=== PATIENT | male | born 1940 | race Caucasian/White ===

== ENCOUNTER → 2018-11-24 14:39 | Outpatient (CLI) | payer MEDICARE, OTHER, SELFPAY ==
--- NOTE | 2018-11-24 16:20 | DI.ECHO.S_ITS ---
[place] [facility]---------+ [facility] +---------+ : : [address] : : : : [id number] : : : : Phone: [phone]+ Echocardiogram Report + + :Name: SUZANNE PATRICIO Study Date: 11/24/2018 Height: 74 in : :[facility] Exam Location: [facility] Weight: 300 lb : : Gender: Male BSA: 2.6 m2 : :: 1940 Age: 78 yrs BP: 105/70 mmHg: :Reason For Study: Cardiomyopathy : :Ordering Physician: Abraham : :Rik Performed By: Jenni Page : + + Interpretation Summary Left ventricular systolic function is low normal with the ejection fraction grossly estimated to be 55-60%. There is a significant dyssynchronous contraction pattern due to the paced rhythm and severe hypokinesis in the proximal to mid inferior wall extending into the proximal inferior septum that is unchanged from the previous study but global contractility appears to be more dynamic with resultant improved ejection fraction. The left ventricle is normal in size and appears smaller compared to the previous study. The right ventricle is not well visualized but grossly appears normal in size with probable normal systolic function and is likely unchanged compared to the previous study. The right ventricular systolic pressure is estimated to be at least 24 mmHg based on an estimated right atrial pressure of 8 mm Hg; both values are likely significantly lower compared to the previous study. The left atrium is severely dilated but unchanged compared to the previous study. The right atrium is moderately dilated and has mildly decreased in size. There is mild mitral regurgitation that is less prominent compared to the previous study. There is no other significant valvular heart disease. The aortic root is mildly dilated but is unchanged compared to the previous study. Procedure: A two-dimensional transthoracic echocardiogram with color flow and Doppler was performed. The study quality was technically difficult. Comparison is made with the echocardiogram of 08/28/2017. A contrast injection of Definity was performed to improve assessment of LV function. The patient has a paced rhythm. Left Ventricle: The left ventricle is normal in size. This is appears smaller compared to the previous study. There is borderline concentric left ventricular hypertrophy. Left ventricular systolic function is low normal. The ejection fraction is estimated to be 55-60%. There is a significant dyssynchronous contraction pattern due to the paced rhythm. There is severe hypokinesis in the proximal to mid inferior wall, extending into the proximal inferior septum, that is unchanged from the previous study but global contractility appears to be more dynamic with resultant improved ejection fraction. Diastolic function could not be accurately assessed due to paced rhythm. Right Ventricle: The right ventricle is not well visualized. The right ventricle grossly appears normal in size with probable normal systolic function. This is unchanged compared to the previous study. There is a pacemaker lead in the right ventricle. Atria: The left atrium is severely dilated. This is unchanged compared to the previous study. The right atrium is moderately dilated. The right atrium has mildly decreased in size since the prior echo exam. There is no Doppler evidence for an interatrial shunt. The interatrial septum is intact with no evidence for an atrial septal defect. Mitral Valve: There is mild mitral annular calcification. The mitral valve leaflets appear mildly thickened, but open well. There is mild mitral regurgitation. This is less prominent compared to the previous study. Aortic Valve: The aortic valve is not well visualized. The aortic valve is mildly calcified. The aortic valve opens well. No aortic regurgitation is present. Tricuspid Valve: The tricuspid valve is not well visualized, but is grossly normal. There is trace tricuspid regurgitation. This is unchanged compared to the previous study. The right ventricular systolic pressure is estimated to be at least 24 mmHg based on an estimated right atrial pressure of 8 mm Hg. This is both values are significantly lower compared to the previous study. Pulmonic Valve: The pulmonic valve is not well visualized. There is trace pulmonic regurgitation. There is no other significant valvular heart disease. Great Vessels: The aortic root is mildly dilated. This is unchanged compared to the previous study. The ascending aorta could not be visualized. The pulmonary is not well visualized. The IVC is dilated (diameter is greater than 2.1 cm) yet it collapses greater than 50% with a sniff. This suggests a right atrial pressure of 8 mm Hg. Pericardium/ Pleura There is no pericardial effusion. There is no pleural effusion. MMode/2D Measurements & Calculations LVIDd: 5.2 cm LVOT diam: 2.4 cm LVIDs: 3.9 cm Ao root diam: 3.9 cm FS: 24.0 % EPSS: 0.74 cm IVSd: 0.89 cm LVPWd: 1.2 cm LV chaidez. diameter/BSA (cm/m^2): 2.0 LV sys. diameter/BSA (cm/m^2): 1.5 LA A2 area: 33.4 cm2 RA long axis: 6.6 cm LA A4 area: 31.5 cm2 RA area: 28.9 cm2 LA length (vol): 7.2 cm RA vol: 107.2 ml LA vol: 124.0 ml RA : 41.5 ml/m2 LA vol index: 48.0 ml/m2 IVC diam: 2.5 cm RVD1 (basal): 5.0 cm TAPSE: 1.9 cm Doppler Measurements & Calculations Ao V2 max: 131.3 cm/sec LVOT Max Campos: 79.7 cm/sec Ao V2 mean: 89.9 cm/sec LV V1 max P.5 mmHg Ao max P.9 mmHg LV V1 VTI: 18.1 cm Ao mean P.6 mmHg MIGUEL(I,D): 3.1 cm2 Ao V2 VTI: 26.9 cm MIGUEL(V,D): 2.8 cm2 sev ratio: 0.67 MIGUEL indexed to BSA (cm^2/m^2): 1.2 MV E max campos: 64.2 cm/sec TR max campos: 201.7 cm/sec MV A max campos: 80.4 cm/sec TR max P.3 mmHg MV E/A: 0.80 PA V2 max: 56.1 cm/sec Med Peak E' Campos: 2.9 cm/sec PA V2 mean: 32.3 cm/sec E/E' med: 22.2 PA mean P.49 mmHg Lat Peak E' Campos: 8.7 cm/sec E/E' lat: 7.4 E/e' average: 14.8 MV dec time: 0.29 sec MV P1/2t: 87.5 msec MV P1/2t max campos: 64.9 cm/sec SV(LVOT): 82.3 ml MVA(P1/2t): 2.5 cm2 Reading Physician:PM
== END ==
PROVIDERS: Family Provider Family Medicine; Visit Provider Specialist
DX: I34.0 Nonrheumatic mitral (valve) insufficiency (principal); I42.9 Cardiomyopathy, unspecified; Z95.0 Presence of cardiac pacemaker
CPT/HCPCS: 93306; Q9957

== ENCOUNTER 2018-12-17 13:58 | Day surgery (SDC) | payer MEDICARE, OTHER, SELFPAY ==
[2018-12-16 08:37] VITALS: BMI 39.6
--- NOTE | 2018-12-17 | DI.RAD.S_ITS ---
PROCEDURE: XR CHEST 1V INDICATIONS: s/p port pacement in PACU TECHNIQUE: One view of the chest was acquired. COMPARISON: None. FINDINGS: Surgical changes and devices: Left chest wall cardiac device leads are seen in the region of right atrium and right ventricle. Median sternotomy wires are seen. A right chest wall Port-A-Cath tip is in SVC. Lungs and pleura: Mild pulmonary vascular congestion is seen. No definite focal infiltrate. No pleural effusions or pneumothorax. Mediastinum: Mediastinal contours appear normal. Heart size is normal. Bones and chest wall: No suspicious bony lesions. Overlying soft tissues appear unremarkable. IMPRESSION: Right chest wall Port-A-Cath tip is in SVC. Mild pulmonary vascular congestion. No focal infiltrate, pleural effusion or pneumothorax. Dictated by: Mohsen Monk M.D. on 12/17/2018 at 17:20 Approved by: Mohsen Monk M.D. on 12/17/2018 at 17:24
[2018-12-17 14:39] VITALS: BP 126/71; PULSE 73; RESP 15; TEMP 36.3; O2SAT 95; BMI 37.7
[2018-12-17] MEDS: LACTATED RINGERS 1,000 ML 100 ML IV (14:53)
[2018-12-17] MEDS: CEFAZOLIN 2 GM/100 ML FROZ.PIGGY IV (15:12)
--- NOTE | 2018-12-17 15:58 | SUR.OPER ---
Supine on padded OR bed, head on pillow, arm padded and tucked at side, legs uncrossed, safety belt at thigh, tape over blanket over lower legs .
[2018-12-17] MEDS: BUPIVACAINE 0.5% W/ EPI (PF) VIAL 30 ML INJ (16:06)
[2018-12-17] MEDS: HEPARIN 5,000 UNIT, SODIUM CHLORIDE 0.9% 50 ML IV (16:09)
[2018-12-17 16:57] VITALS: BP 114/64; PULSE 60; RESP 12; TEMP 36.2; O2SAT 94
--- NOTE | 2018-12-17 16:57 | P.OP_ITS ---
Operative Date/Time/Diagnoses Date of procedure: 12/17/18 Time of procedure: 16:54 Pre-op diagnosis: lymphoma Post-op diagnosis: same Procedure & Clinicians Procedure: Implanted power - port - right IJ Same procedure as scheduled: Yes Indications: 78-year-old man with a new diagnosis of lymphoma needing implanted port ahead of planned chemotherapy Surgeon: Jose Cueto Click Yes if Unassisted: Yes Anesthesia Type: MAC +/- and Local Operative Notes Findings: Port placed -an IJ, seen by fluoro Closure Type: primary Specimen(s): none sent Prosthetic devices, grafts, tissues, transplants, or devices: Power port implanted port Estimated Blood Loss (mL): 10 Blood products transfused: none Procedure in detail: Patient taken to the operating room and LMA was placed. Is prepped and draped in the usual sterile fashion and time-out was completed. The patient positioned on a shoulder roll. Given patient's pacemaker over the left chest. The right chest was chosen for the site of his port. 1st attempted to place a subclavian line. Three passes were made 2 cm inferior and lateral of the peak of the curvature of the right clavicle -directed towards the sternal notch. There is no flash. Then switched to a right IJ placement. In Trendelenburg position -ultrasound was utilized which readily identified the internal jugular vein, was non-pulsatile, easily compressible, and lateral to the carotid artery. A single puncture was made under ultrasound guidance directly into the vein. The wire was threaded without incident. Fluoroscopy was utilized to confirm placement into the right atrium of the guidewire. The tract was then dilated and a sheath was placed. I then created a small pocket over the right pectoralis major muscle in the subcutaneous tissue. Due to the patient's pacemaker this was done with a scalpel. Bipolar cautery was used for hemostasis. With the pocket created the catheter was tunneled via the small neck incision into the pocket -taking a broad curved route. The distal tip of the catheter was then threaded down the sheath without incident and the sheath was split in half by removing it. Under fluoroscopic guidance the catheter was then backed out until the tip was at approximately the SVC/atrial junction. The catheter was foreshortened and the reservoir was attached without incident. The reservoir was placed into the pocket and sutured to the deep tissue utilizing 2 2-0 Prolene sutures. A Chapa needle was placed into the reservoir- it easily withdrew blood. The reservoir was then flushed out and heparin lock with 5ml of 100 units/ml heparin solution. Skin was closed with a layer of deep dermal 2 0 Vicryl sutures and then running subcuticular 3 0 Monocryl. X-ray in PACU demonstrated will place port -with tip just flow proximal to the SVC/atrial junction. Complications: none Condition: stable Disposition: PACU
[2018-12-17 17:00] VITALS: BP 118/63; PULSE 60; RESP 15; O2SAT 95
[2018-12-17 17:20] VITALS: BP 126/68; PULSE 59; RESP 16; TEMP 36.1; O2SAT 95
[2018-12-17] MEDS: OXYCODONE/ACETAMINOPHEN 5/325 TABLET 1 TAB PO (17:36)
--- NOTE | 2018-12-17 18:05 | SUR.PHASEII ---
Pt ambulated to bathroom, gait steady. Able to void. Sat down heavy on wheelchair, head bumped the IV pole, pt reported mild discomfort initially but resolved quickly.
== END 2018-12-17 17:58 | disposition home or self-care (01) ==
PROVIDERS: PCP Family Medicine; Visit Provider Surgery
PROC: (CPT 36561; principal; 2018-12-17 15:15)
DX: Z45.2 Encounter for adjustment and management of vascular access device (principal); C85.90 Non-Hodgkin lymphoma, unspecified, unspecified site; Z95.0 Presence of cardiac pacemaker; Z95.1 Presence of aortocoronary bypass graft
CPT/HCPCS: 36561; 71045; 76000; C1788; J0690; J1644; J2704; J3010

== ENCOUNTER → 2019-04-21 11:58 | Outpatient (CLI) | payer MEDICARE, OTHER, SELFPAY ==
[2019-04-21 12:33] LABS: Add Manual Diff / Slide Review NO; Basophils Absolute Auto 0 /uL (0-100); Basophils Percent Auto 0.7 % (0-2); Eosinophils Absolute Auto 100 /uL (0-450); Hematocrit 43.1 % (41-53); Hemoglobin 14.6 g/dL (13.5-17.5); Lymphocytes Absolute Auto 1600 /uL (1100-4500); Lymphocytes Percent Auto 23.7 % (25-40); Mean Corpuscular Hemoglobin 30.1 PG (26-34); Mean Corpuscular Volume 88.6 fL (80-100); Monocytes Absolute Auto 1000 /uL (0-900); Monocytes Percent Auto 14.4 % (3-14); Neutrophils Absolute Auto 4000 /uL (1500-7000); Neutrophils Percent Auto 59.2 % (50-75); Platelet Count 103 X10^3/uL (150-400); Red Blood Cell Count 4.87 X10^6/uL (4.5-5.9); Red Cell Distribution Width 14.2 % (11.6-14.8); White Blood Cell Count 6.8 X10^3/uL (4.5-11.0)
[2019-04-21 12:45] LABS: Alanine Aminotransferase 30 IU/L (21-72); Albumin 4.4 g/dL (3.5-5.0); Albumin Globulin Ratio 1.5 (1.0-2.8); Alkaline Phosphatase 71 U/L (38-126); Aspartate Aminotransferase 41 IU/L (17-59); Bilirubin Total 1.1 mg/dL (0.2-1.3); Blood Urea Nitrogen 18 mg/dL (9-20); Calcium 9.8 mg/dL (8.4-10.2); Carbon Dioxide 31 mmol/L (22-32); Chloride 105 mmol/L (98-107); Estimated Glomerular Filt Rate > 60.0 mL/min (>60); Globulin 2.9 g/dL (1.7-4.1); Glucose 104 mg/dL (80-110); HEMOLYSIS 22 (0-50); Lactate Dehydrogenase 620 U/L (313-618); Sodium 142 mmol/L (137-145); Total Protein 7.3 g/dL (6.3-8.2)
[2019-04-21 12:53] LABS: Potassium 5.8 mmol/L (3.4-5.1)
== END ==
PROVIDERS: PCP Family Medicine
DX: C83.10 Mantle cell lymphoma, unspecified site (principal)
CPT/HCPCS: 36415; 80053; 83615; 85025

== ENCOUNTER → 2019-04-22 13:47 | Outpatient (CLI) | payer MEDICARE, OTHER, SELFPAY ==
--- NOTE | 2019-04-22 | DI.CT.S_ITS ---
PROCEDURE: CT SOFT TISSUE NECK W CON INDICATIONS: Mantle cell lymphoma, unspecified site TECHNIQUE: After the administration of intravenous contrast, 3.0 mm axial sections acquired from the sella to the aortic arch. Additional oblique axial 3.0 mm sections acquired through the pharynx. 3 mm thick coronal and sagittal reformats were generated. For radiation dose reduction, the following was used: automated exposure control. COMPARISON: [facility], MD, MD PET CT FUSION SKULL 2 THIGH, 12/16/2018, 18:35. [facility], CT, CT SOFT TISSUE NECK WITH CONTRAST, 10/18/2018, 14:47. FINDINGS: Image quality: Excellent. Since the 10/18/18 interval enlargement of multiple bilateral cervical lymph nodes. For example on image 50 series 2 left-sided cervical lymphadenopathy measuring 2.3 x 1.9 cm, previously 2.0 x 1.8 cm. On the same image, right cervical lymph node measures 2.6 x 1.4 cm, previously 2.1 x 1.2 cm. On image 28 series 2 overlying the right masseter, lymph node measures 2.3 x 10.7 cm, previously 1.8 x 0.7 cm. These also appear increased in size from nondiagnostic CT attenuation correction images on the PET/CT dated 12/16/18 Vessels: Visualized vasculature appears patent. Neck spaces: The oropharynx, nasopharynx, and pharynx demonstrate no mucosal lesions. The vocal cords, false vocal cords, pyriform sinuses, epiglottis, vallecula, and tongue base all appear normal. Extramucosal spaces appear unremarkable. Glands: The parotid and submandibular glands appear normal. Thyroid gland contains hypodense nodules seen in the isthmus as before. Miscellaneous: Visualized brain and orbits appear normal. Lung apices appear clear. Superficial soft tissues appear normal. Cervical spondylosis and facet arthropathy. Straightening of the normal lordotic curvature. IMPRESSION: Progressive diffuse cervical lymphadenopathy as above. Dictated by: Zhang Peña M.D. on 04/22/2019 at 17:59 Approved by: Zhang Peña M.D. on 04/22/2019 at 18:06
--- NOTE | 2019-04-22 | DI.CT.S_ITS ---
PROCEDURE: CT CHEST ABD PEL W CON INDICATIONS: Mantle cell lymphoma, unspecified site TECHNIQUE: After the administration of intravenous contrast, 5 mm thick sections acquired from the lung apices to the symphysis. 5 mm coronal and sagittal reformats were performed, with additional 7 mm MIP reformats through the lungs. For radiation dose reduction, the following was used: automated exposure control, adjustment of mA and/or kV according to patient size. COMPARISON: [facility], CT, PELVIS W CONTRAST, 06/26/2011, 17:47. [facility], [place], [place] PET CT FUSION SKULL 2 THIGH, 12/16/2018, 18:35. FINDINGS: Image quality: Excellent. CHEST: Lungs and pleura: Unchanged subpleural nodule measuring 3 mm in the right lung on image 194 there is also fissural nodularity on image 182 series 3 which is stable. Scattered subsegmental atelectasis and/or scarring. No focal consolidation. No pleural effusions or pneumothorax. Central and peripheral airways appear patent and normal in caliber. Mediastinum: Heart size is enlarged. No pericardial effusion. No mediastinal or hilar adenopathy by size criteria. Thoracic aorta and central pulmonary arteries are normal in size. Esophagus is normal in caliber. No hiatal hernia. Chest wall: No axillary or supraclavicular adenopathy by size criteria. Thyroid gland unremarkable. ABDOMEN: Solid organs: Liver is normal in size and enhancement. Gallbladder contracted and unremarkable. Biliary system is non dilated. Pancreas enhances normally. Spleen is normal in size and enhancement. No adrenal nodules. Kidneys demonstrate normal size and enhancement, without hydronephrosis. Bilateral renal cysts with simple appearance Peritoneum and bowel: Bowel loops demonstrate normal wall thickness and caliber. No free fluid or air. Nodes and vessels: Unchanged shotty retroperitoneal or mesenteric lymph nodes with no definite pathologic enlargement. Left aortoiliac stent as before and grossly unchanged appearance. Miscellaneous: No ventral hernias. PELVIS: Genitourinary: Bladder wall thickness is normal. Bilateral inguinal scarring and/or mildly enlarged lymph nodes which appear unchanged. Small fat-containing left inguinal hernia Multilevel spondylosis and facet arthropathy. Diffuse osteopenia. Diffuse lytic permeative appearance of the L4 and L5 vertebral bodies is grossly unchanged IMPRESSION: Overall, unchanged examination. No specific evidence of active metastatic disease. Additional chronic and incidental findings as above. Dictated by: Zhang Peña M.D. on 04/22/2019 at 16:10 Approved by: Zhang Peña M.D. on 04/22/2019 at 16:26
== END ==
PROVIDERS: PCP Family Medicine
DX: C83.10 Mantle cell lymphoma, unspecified site (principal); M47.816 Spondylosis without myelopathy or radiculopathy, lumbar region; M85.80 Other specified disorders of bone density and structure, unspecified site; R91.1 Solitary pulmonary nodule; I51.7 Cardiomegaly; N28.1 Cyst of kidney, acquired
CPT/HCPCS: 70491; 71260; 74177; Q9967

== ENCOUNTER → 2019-09-01 11:51 | Outpatient (CLI) | payer MEDICARE, OTHER, SELFPAY ==
--- NOTE | 2019-09-01 11:54 | DI.CT.S_ITS ---
PROCEDURE: CT CHEST ABD PEL W CON INDICATIONS: f/u lymphoma TECHNIQUE: After the administration of oral and intravenous contrast, 5 mm thick sections acquired from the lung apices to the symphysis. 5 mm coronal and sagittal reformats were performed, with additional 7 mm coronal MIP reformats through the lungs. For radiation dose reduction, the following was used: automated exposure control, adjustment of mA and/or kV according to patient size. COMPARISON: [facility], CR, XR CHEST 1V, 12/17/2018, 17:03. [facility] Ultrasound, US, US THYROID, 01/09/2018, 11:10. [facility], US, US SOFT TISSUE HEAD OR NECK, 10/08/2018, 14:47. [facility], CT, CT SOFT TISSUE NECK WITH CONTRAST, 10/18/2018, 14:47. [facility], CT, CT SOFT TISSUE NECK W CON, 04/22/2019, 14:45. [facility], CT, CT SOFT TISSUE NECK W CON, 09/01/2019, 12:36. [facility], CT, CT CHEST ABD PEL W CON, 04/22/2019, 14:45. FINDINGS: Image quality: Excellent. CHEST: Lungs and pleura: No acute airspace opacities. Subpleural right mid lung 3 mm nodule stable over time, no new pulmonary nodule has developed. No pleural effusions or pneumothorax. Central and peripheral airways appear patent and normal in caliber. Mediastinum: Heart size is normal. No pericardial effusion. No mediastinal or hilar adenopathy by size criteria. Thoracic aorta and central pulmonary arteries are normal in size. Esophagus is normal in caliber. No hiatal hernia. Chest wall: No axillary or supraclavicular adenopathy by size criteria. Thyroid gland appears stable where well seen, and there is a 2.1 cm thyroid nodule that appears to have been previously present on prior CT scanning, just to the right of midline.. ABDOMEN: Solid organs: Liver is normal in size and enhancement. Gallbladder appears normal. Biliary system is non dilated. Pancreas enhances normally. Spleen is normal in size and enhancement. No adrenal nodules. Kidneys demonstrate normal size and enhancement, without hydronephrosis. Exophytic simple cyst projecting from the superior cortex of the left kidney, 5 cm. Peritoneum and bowel: Bowel loops demonstrate normal wall thickness and caliber. No free fluid or air. Nodes and vessels: No retroperitoneal or mesenteric adenopathy by size criteria. Aorta and inferior vena cava are normal in size. Miscellaneous: No ventral hernias. PELVIS: Genitourinary: Bladder wall thickness is normal. Miscellaneous: No inguinal hernias or adenopathy. Bones: No suspicious bony lesions. No vertebral body compression fractures. IMPRESSION: Right-sided thyroid nodule again seen, centered only slightly to the right of midline and this area has been previously identified and evaluated by ultrasound and ultrasound guided biopsy. No growing thyroid mass is identified. Throughout the visualized chest abdomen and pelvis no adenopathy or evidence of visceral involvement by lymphoma is found. Dictated by: Phil Cuadra M.D. on 09/01/2019 at 15:04 Approved by: Phil Cuadra M.D. on 09/01/2019 at 15:13
--- NOTE | 2019-09-01 11:54 | DI.CT.S_ITS ---
PROCEDURE: CT SOFT TISSUE NECK W CON INDICATIONS: f/u lymphoma TECHNIQUE: After the administration of intravenous contrast, 3.0 mm axial sections acquired from the sella to the aortic arch. Additional oblique axial 3.0 mm sections acquired through the pharynx. 3 mm thick coronal and sagittal reformats were generated. For radiation dose reduction, the following was used: automated exposure control. COMPARISON: [facility], CT, CT SOFT TISSUE NECK W CON, 04/22/2019, 14:45. FINDINGS: Image quality: Excellent. Lymph nodes: Bilateral level I, level II, level III, level IV and level V enlarged lymph nodes are stable in size compared to 04/22/2019. Bilateral intraparotid enlarged lymph nodes and enlarged lymph nodes in the bilateral temporal scalp subcutaneous fat are stable compared to 04/22/2019. Vessels: Visualized vasculature appears patent. Neck spaces: The oropharynx, nasopharynx, and pharynx demonstrate no mucosal lesions. The vocal cords, false vocal cords, pyriform sinuses, epiglottis, vallecula, and tongue base all appear normal. Extramucosal spaces appear unremarkable. Glands: The parotid and submandibular glands appear normal. Thyroid gland contains heterogeneously enhancing, hypoattenuating nodules which are stable in size, contour and number compared to prior exams.. Miscellaneous: Visualized brain appears normal. Partially visualized 2.4 x 1.3 cm soft tissue density mass in the post septal, extraconal lateral margin of the left orbit is noted. Lung apices appear clear. Superficial soft tissues appear normal. A cardiac pacer noted in the left chest wall. Port-A-Cath noted in the right chest wall. Bones: No suspicious bony lesions. Mucosal thickening in the left sphenoid sinus is stable. Visualized mastoids appear unremarkable. IMPRESSION: 1. Bilateral neck, bilateral intraparotid and bilateral temporal scalp lymphadenopathy stable compared to 04/22/2019. 2. 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 3. Left sphenoid sinus mucosal thickening unchanged compared to prior examinations and likely related to chronic sinusitis. Dictated by: Renetta Landers MD, PhD on 09/01/2019 at 15:40 Approved by: Renetta Landers MD, PhD on 09/01/2019 at 15:54
== END ==
PROVIDERS: PCP Family Medicine
DX: C83.10 Mantle cell lymphoma, unspecified site (principal); E04.1 Nontoxic single thyroid nodule; R59.0 Localized enlarged lymph nodes; H05.9 Unspecified disorder of orbit
CPT/HCPCS: 70491; 71260; 74177

== ENCOUNTER → 2019-12-03 12:53 | Outpatient (CLI) | payer MEDICARE, OTHER, SELFPAY ==
--- NOTE | 2019-12-03 12:55 | DI.CT.S_ITS ---
PROCEDURE: CT ORBIT BI W CON INDICATIONS: mantle cell lymphoma, left orbit mass TECHNIQUE: After the administration of intravenous contrast, 2.5 mm axial images acquired through the orbits, with coronal and sagittal reformats. For radiation dose reduction, the following was used: automated exposure control, adjustment of mA and/or kV according to patient size. COMPARISON: [facility], CT, CT SOFT TISSUE NECK W CON, 09/01/2019, 12:36. [facility], CT, CT SOFT TISSUE NECK W CON, 04/22/2019, 14:45. FINDINGS: Image quality: Excellent. Orbits: Within the right orbit, there is again seen abnormally enhancing soft tissue material along the inferolateral aspect of the globe, within the post septal extraconal orbit. On the left, there is a similar-appearing homogeneously enhancing mass along the superolateral aspect of the extraconal, post septal orbit, which measures 3.4 cm AP and nearly 3 cm craniocaudal. Globes are symmetrical. The optic nerves are normal in size and enhancement. The extra-ocular muscles are normal and symmetrical in appearance. Optic chiasm is normal. Intracranial: The pituitary gland is normal, without sellar or suprasellar masses. Visualized cerebral hemispheres, brainstem, and spinal cord appear normal. Bones and sinuses: Visualized calvarium and facial bones appear intact. Focal mucosal thickening can be seen involving left sphenoid sinus. Visualized sinuses and mastoids are otherwise clear. Soft tissue masses are seen involving the subcutaneous fat of both cheeks, with the largest on the left measuring 2.3 x 1.1 cm in greatest axial dimension. Apparent bilateral intra-parotid lymph nodes are also seen. IMPRESSION: Bilateral enhancing orbital masses are seen, left larger than right. Given history of lymphoma, these foci represent lymphoma until proven otherwise. Soft tissue masses can be seen involving the subcutaneous fat of both cheeks, which are also attributed to lymphoma. Apparent bilateral intraparotid lymph nodes are also seen. Focal left sphenoid sinus disease again noted. Dictated by: Lalo Mendoza M.D. on 12/03/2019 at 13:20 Approved by: Lalo Mendoza M.D. on 12/03/2019 at 13:28
[2019-12-03 13:16] LABS: Add Manual Diff / Slide Review NO; Basophils Absolute Auto 0 /uL (0-100); Basophils Percent Auto 0.2 % (0-2); Eosinophils Absolute Auto 0 /uL (0-450); Hematocrit 42.3 % (41-53); Hemoglobin 14.3 g/dL (13.5-17.5); Lymphocytes Absolute Auto 800 /uL (1100-4500); Lymphocytes Percent Auto 9.7 % (25-40); Mean Corpuscular HGB Conc 33.9 % (30-36); Mean Corpuscular Hemoglobin 30.3 PG (26-34); Mean Corpuscular Volume 89.3 fL (80-100); Monocytes Absolute Auto 300 /uL (0-900); Monocytes Percent Auto 3.5 % (3-14); Neutrophils Absolute Auto 7500 /uL (1500-7000); Neutrophils Percent Auto 86.6 % (50-75); Platelet Count 107 X10^3/uL (150-400); Red Blood Cell Count 4.73 X10^6/uL (4.5-5.9); Red Cell Distribution Width 14.3 % (11.6-14.8); White Blood Cell Count 8.6 X10^3/uL (4.5-11.0)
[2019-12-03 13:28] LABS: Alanine Aminotransferase 24 IU/L (<50); Albumin 4.6 g/dL (3.5-5.0); Albumin Globulin Ratio 1.6 (1.0-2.8); Alkaline Phosphatase 70 U/L (38-126); Aspartate Aminotransferase 38 IU/L (17-59); BUN Creatinine Ratio 23.9 (6-22); Blood Urea Nitrogen 17 mg/dL (9-20); Calcium 9.5 mg/dL (8.4-10.2); Carbon Dioxide 20 mmol/L (22-32); Chloride 108 mmol/L (98-107); Estimated Glomerular Filt Rate > 60.0 mL/min (>60); Globulin 2.9 g/dL (1.7-4.1); Glucose 179 mg/dL (80-110); HEMOLYSIS < 15 (0-50); Lactate Dehydrogenase 544 U/L (313-618); Potassium 4.7 mmol/L (3.4-5.1); Sodium 138 mmol/L (137-145); Total Protein 7.5 g/dL (6.3-8.2)
[2019-12-06 12:07] LABS: Beta-2-Microglobulin 1.8 mg/L (0.6-2.4)
== END ==
PROVIDERS: PCP Family Medicine; Referring Provider Internal Medicine Hematology & Oncology; Visit Provider Internal Medicine Hematology & Oncology
DX: C83.11 Mantle cell lymphoma, lymph nodes of head, face, and neck (principal); J32.3 Chronic sphenoidal sinusitis
CPT/HCPCS: 36415; 70481; 80053; 82232; 83615; 85025; Q9967

== ENCOUNTER → 2020-01-04 09:16 | Outpatient (CLI) | payer MEDICARE, OTHER, SELFPAY ==
--- NOTE | 2020-01-04 | DI.ECHO.S_ITS ---
[facility] +---------+ [facility] +---------+ : : [address] : [place] : : : : [id number] : : : : Phone: [phone] +---------+ Echocardiogram Report + + :Name: SUZANNE PATRICIO Study Date: 01/04/2020 Height: 75 in : :[facility] Weight: 310 lb : : Gender: Male BSA: 2.6 m2 : :: 1940 Age: 79 yrs BP: 108/64 mmHg: :Reason For Study: Atrial Fibrillation : :Ordering Physician: Beth : :Bartolo Performed By: Tea Bell : :Referring: BETH DE LEON : + + Interpretation Summary This is a limited echocardiogram focused on left ventricular function. The left ventricle is mildly enlarged with an end-diastolic volume of 144 mL. Systolic function is mildly reduced with an estimated ejection fraction of 55 to 65% with significant [id number] variability and a significant dyssynchronous contraction pattern. There is severe hypokinesis to akinesis of the proximal and mid inferior wall, extending into the proximal inferior septum, and probable hypokinesis in the mid to distal anterior septum although this latter area is less well visualized. There is no clear change from the previous exam. Diastolic function could not be accurately assessed due to atrial fibrillation. Procedure: A two-dimensional transthoracic echocardiogram with color flow and Doppler was performed in limited views only. The study quality was technically difficult. A contrast injection of Definity was performed to improve assessment of LV function. Patient denied any symptoms after the use of Definity. The patient was in atrial fibrillation with heart rates between 71-95 bpm during the exam. Left Ventricle: Left ventricular wall thickness is mildly increased. The left ventricle is mildly dilated. The estimated left ventricular end diastolic volume is 144 ml. Left ventricular systolic function is mildly impaired with an grossly estimated ejection fraction of 55% to 65% with a significant dyssynchronous contraction pattern and severe hypokinesis to akinesis of the proximal and mid inferior wall, extending into the proximal inferior septum. There is also probable mild hypokinesis in the mid to distal anterior septum although endocardium in this area is less well visualized. There is no apparent change from the previous exam. Diastolic function could not be accurately assessed due to atrial fibrillation. Atria: The left atrium is severely dilated. This is unchanged compared to the previous study. Pericardium/ Pleura There is no pericardial effusion. There is no pleural effusion. MMode/2D Measurements & Calculations LVIDd: 5.7 cm LA A2 area: 35.8 cm2 LVIDs: 3.7 cm LA A4 area: 27.4 cm2 FS: 34.7 % LA length (vol): 6.5 cm EPSS: 0.66 cm LA vol: 127.5 ml IVSd: 1.0 cm LA vol index: 48.2 ml/m2 LVPWd: 1.3 cm LV chaidez. diameter/BSA (cm/m^2): 2.2 LV sys. diameter/BSA (cm/m^2): 1.4 Doppler Measurements & Calculations LVOT Max Campos: 83.2 cm/sec MV E max campos: 104.2 cm/sec LV V1 max P.8 mmHg MV A max campos: 0.74 cm/sec LV V1 VTI: 15.2 cm MV E/A: 140.0 MV dec time: 0.17 sec Reading Physician:HARINDER
== END ==
PROVIDERS: PCP Family Medicine; Referring Provider Physician Assistant Medical; Visit Provider Physician Assistant Medical
DX: I48.19 Other persistent atrial fibrillation (principal)
CPT/HCPCS: 93307; Q9957

== ENCOUNTER → 2020-03-09 10:32 | Outpatient (CLI) | payer MEDICARE, OTHER, SELFPAY ==
--- NOTE | 2020-03-09 10:34 | DI.CT.S_ITS ---
PROCEDURE: CT CHEST ABD PEL W CON INDICATIONS: mantle cell lymphoma restaging TECHNIQUE: After the administration of oral and intravenous contrast, 5 mm thick sections acquired from the lung apices to the symphysis. 5 mm coronal and sagittal reformats were performed, with additional 7 mm coronal MIP reformats through the lungs. For radiation dose reduction, the following was used: automated exposure control, adjustment of mA and/or kV according to patient size. COMPARISON: [facility], CT, CT CHEST ABD PEL W CON, 09/01/2019, 12:36. FINDINGS: Image quality: Excellent. CHEST: Scattered subsegmental atelectasis and/or scarring. No focal consolidation. No pleural effusions or pneumothorax. Central and peripheral airways appear patent and normal in caliber. Mediastinum: Heart size is normal. Coronary artery calcifications are present. No pericardial effusion. No mediastinal or hilar adenopathy by size criteria. Thoracic aorta and central pulmonary arteries are normal in size. Esophagus is normal in caliber. No hiatal hernia. Chest wall: No axillary or supraclavicular adenopathy by size criteria. Thyroid gland heterogeneous, with low-attenuation nodule in the isthmus, unchanged. This could be better assessed with ultrasound as clinically warranted . ABDOMEN: Solid organs: Liver is normal in size and enhancement. Gallbladder contracted otherwise unremarkable . Biliary system is non dilated. Pancreas enhances normally. Spleen is normal in size and enhancement. No adrenal nodules. Bilateral simple appearing renal cysts. Peritoneum and bowel: Bowel loops demonstrate normal wall thickness and caliber. No free fluid or air. Nodes and vessels: No retroperitoneal or mesenteric adenopathy by size criteria. Scattered vascular calcifications seen in the aorta. Aortoiliac stent graft noted on the left. Miscellaneous: No ventral hernias. PELVIS: Genitourinary: Bladder wall thickness is normal. Bilateral inguinal lymph nodes appear less conspicuous/decreased in size since the prior study on both sides. Bones: No vertebral body compression fracture. Spondylytic changes and facet arthropathy. IMPRESSION: No specific evidence of active metastatic disease. Additional chronic and incidental findings as above. Dictated by: Zhang Peña M.D. on 03/09/2020 at 13:31 Approved by: Zhang Peña M.D. on 03/09/2020 at 13:39
--- NOTE | 2020-03-09 10:34 | DI.CT.S_ITS ---
PROCEDURE: CT SOFT TISSUE NECK W CON INDICATIONS: mantle cell lymphoma restaging TECHNIQUE: After the administration of intravenous contrast, 3.0 mm axial sections acquired from the sella to the aortic arch. Additional oblique axial 3.0 mm sections acquired through the pharynx. 3 mm thick coronal and sagittal reformats were generated. For radiation dose reduction, the following was used: automated exposure control. COMPARISON: [facility], CT, CT SOFT TISSUE NECK W CON, 09/01/2019, 12:36. [facility], CT, CT SOFT TISSUE NECK W CON, 04/22/2019, 14:45. [facility], CT, CT SOFT TISSUE NECK WITH CONTRAST, 10/18/2018, 14:47. FINDINGS: Image quality: Excellent. Lymph nodes: No enlarged lymph nodes seen throughout the neck. Vessels: Visualized vasculature appears patent. Neck spaces: The oropharynx, nasopharynx, and pharynx demonstrate no mucosal lesions. The vocal cords, false vocal cords, pyriform sinuses, epiglottis, vallecula, and tongue base all appear normal. Extra mucosal spaces appear unremarkable.. Glands: The parotid and submandibular glands appear normal. Thyroid gland contains numerous hypoattenuating nodules which are stable compared to prior exams.. Miscellaneous: Right chest wall Port-A-Cath is stable. Left orbit postseptal, extraconal mass is decreased in size measuring approximately 1.3 x 0.5 centimeters in the current study. Left chest wall cardiac pacer stable. Visualized brain and orbits appear normal. Lung apices appear clear. Superficial soft tissues appear normal. Bones: No suspicious bony lesions. Spine degenerative disc disease and facet arthropathy. Left maxillary sinus mucosal thickening is stable compared to September 01, 2019. The mastoids appear unremarkable. IMPRESSION: 1. No lymphadenopathy based on size criteria. 2. Right orbit postseptal, extraconal mass is decreased in size 3. Stable left maxillary sinus mucosal thickening. Dictated by: Renetta Landers MD, PhD on 03/09/2020 at 15:04 Approved by: Renetta Landers MD, PhD on 03/09/2020 at 15:30
== END ==
PROVIDERS: PCP Family Medicine; Referring Provider Internal Medicine Hematology & Oncology; Visit Provider Internal Medicine Hematology & Oncology
DX: C83.10 Mantle cell lymphoma, unspecified site (principal); E04.2 Nontoxic multinodular goiter; I25.10 Atherosclerotic heart disease of native coronary artery without angina pectoris; N28.1 Cyst of kidney, acquired; Z95.828 Presence of other vascular implants and grafts
CPT/HCPCS: 70491; 71260; 74177

== ENCOUNTER → 2020-04-27 14:54 | Outpatient (CLI) | payer MEDICARE, OTHER, SELFPAY ==
--- NOTE | 2020-04-27 | DI.ECHO.S_ITS ---
[place] +---------+ Hospital +---------+ : : [address] : [place] : : : : [phone] : : : : Phone: [phone] : [phone] +---------+ Echocardiogram Report + + :Name: SUZANNE PATRICIO Study Date: 04/27/2020 Height: 75 in : :[facility] Weight: 288 lb : : Gender: Male BSA: 2.6 m2 : :: 1940 Age: 79 yrs BP: 112/70 mmHg: :Reason For Study: ATRIAL FIBRILLATION : :Ordering Physician: ENZO, : :RYAN DORADO Performed By: Tea Bell : :Referring: RYAN GIRALDO : + + Interpretation Summary There is mild concentric left ventricular hypertrophy. The ejection fraction is estimated to be 40-45%. There is a significant dyssynchronous contraction pattern due to the paced rhythm. Inferior and apical lateral younger are hypokinetic There is a pacemaker lead in the right ventricle. There is mild mitral regurgitation. The aortic valve is mildly calcified. There is mild tricuspid regurgitation. Right ventricular systolic pressure is estimated to be 25 mmHg plus the clinically estimated CVP which cannot be estimated on this exam. Procedure: A two-dimensional transthoracic echocardiogram with color flow and Doppler was performed. The study quality was technically difficult. Comparison is made with the echocardiogram of 01/04/2020. The patient has a paced rhythm. The patient had frequent PACs during the exam. Left Ventricle: The estimated left ventricular end diastolic volume is 126 ml. The left ventricle is normal in size. There is mild concentric left ventricular hypertrophy. The ejection fraction is estimated to be 40-45%. There is a significant dyssynchronous contraction pattern due to the paced rhythm. Inferior and apical lateral younger are hypokinetic. Diastolic function could not be accurately assessed due to paced rhythm. Right Ventricle: The right ventricle is normal size. There is a pacemaker lead in the right ventricle. Right ventricular systolic function is mild to moderately reduced. Atria: The left atrium is severely dilated. The right atrium is severely dilated. There is no Doppler evidence for an interatrial shunt. Mitral Valve: There is mild mitral annular calcification. The mitral valve leaflets appear mildly thickened, but open well. There is mild mitral regurgitation. Aortic Valve: The aortic valve is not well visualized. The aortic valve is mildly calcified. The aortic valve opens well. There is no aortic valve stenosis. No aortic regurgitation is present. Tricuspid Valve: The tricuspid valve is normal in structure and function. There is mild tricuspid regurgitation. Right ventricular systolic pressure is estimated to be 25 mmHg plus the clinically estimated CVP which cannot be estimated on this exam. Pulmonic Valve: The pulmonic valve is not well visualized. There is mild pulmonic regurgitation. Great Vessels: The aortic root is normal size. The ascending aorta is mildly enlarged. The inferior vena cava was not well visualized. Pericardium/ Pleura There is no pericardial effusion. There is no pleural effusion. MMode/2D Measurements & Calculations LVIDd: 5.3 cm LVOT diam: 2.4 cm LVIDs: 4.2 cm Ao root diam: 3.8 cm FS: 22.4 % asc Aorta Diam: 3.7 cm EPSS: 0.84 cm Ao Arch Diam (Prox Trans): 3.2 cm IVSd: 1.1 cm LVPWd: 1.1 cm LV chaidez. diameter/BSA (cm/m^2): 2.1 LV sys. diameter/BSA (cm/m^2): 1.6 LA A2 area: 37.8 cm2 RA long axis: 6.6 cm LA A4 area: 38.0 cm2 RA area: 33.8 cm2 LA length (vol): 7.2 cm RA vol: 146.2 ml LA vol: 169.1 ml RA : 57.1 ml/m2 LA vol index: 66.0 ml/m2 RVD1 (basal): 3.9 cm TAPSE: 1.4 cm Doppler Measurements & Calculations Ao V2 max: 114.6 cm/sec LVOT Max Campos: 74.6 cm/sec Ao V2 mean: 73.1 cm/sec LV V1 max P.2 mmHg Ao max P.2 mmHg LV V1 VTI: 14.6 cm Ao mean P.6 mmHg MIGUEL(I,D): 2.9 cm2 Ao V2 VTI: 22.3 cm MIGUEL(V,D): 2.9 cm2 sev ratio: 0.66 MIGUEL indexed to BSA (cm^2/m^2): 1.1 Med Peak E' Campos: 6.9 cm/sec TR max campos: 250.9 cm/sec Lat Peak E' Campos: 10.5 cm/sec TR max P.3 mmHg MR ERO: 0.25 cm2 PA V2 max: 56.6 cm/sec PA V2 mean: 38.2 cm/sec PA mean P.67 mmHg PA pr(Accel): 39.6 mmHg MR PISA: 3.6 cm2 SV(LVOT): 65.0 ml MR flow rate: 112.5 cm3/sec MR PISA radius: 0.75 cm Reading Physician:05:35 PM
== END ==
PROVIDERS: PCP Family Medicine; Referring Provider Nurse Practitioner; Visit Provider Nurse Practitioner
DX: I48.11 Longstanding persistent atrial fibrillation (principal); I08.1 Rheumatic disorders of both mitral and tricuspid valves; I77.89 Other specified disorders of arteries and arterioles; Z95.0 Presence of cardiac pacemaker
CPT/HCPCS: 93306

== ENCOUNTER → 2020-09-01 14:56 | Outpatient (CLI) | payer MEDICARE, OTHER, SELFPAY ==
[2020-09-01] MEDS: COVID-19 VACC #1, MRNA(MOD) 100 MCG/0.5 ML VIAL IM (15:03)
== END ==
PROVIDERS: PCP Family Medicine; Visit Provider Internal Medicine
DX: Z23 Encounter for immunization (principal)
CPT/HCPCS: 0011A; 91301

== ENCOUNTER → 2020-09-29 15:37 | Outpatient (CLI) | payer MEDICARE, OTHER, SELFPAY ==
[2020-09-29] MEDS: COVID-19 VACC #2, MRNA(MOD) 100 MCG/0.5 ML VIAL IM (15:45)
== END ==
PROVIDERS: PCP Family Medicine; Visit Provider Internal Medicine
DX: Z23 Encounter for immunization (principal)
CPT/HCPCS: 0012A; 91301

== ENCOUNTER → 2022-07-08 13:49 | Outpatient (CLI) | payer MEDICARE, OTHER, SELFPAY ==
--- NOTE | 2022-07-08 | DI.ECHO.S_ITS ---
[place] +---------+ Hospital +---------+ : : [address] [place] : : : : [phone] : : : : Phone: [phone] : : [phone] +---------+ Echocardiogram Report + + :Name: SUZANNE PATRICIO Study Date: 07/08/2022 Height: 76 in : :[facility] ReadingLocation: Weight: 280 lb : : Gender: Male BSA: 2.6 m2 : :: 1940 Age: 81 yrs BP: 159/94 mmHg: :Reason For Study: EXERTIONAL DYSPNEA : :Ordering Physician: AKUA, : :LEONELA Performed By: Tea Bell : :Referring: LEONELA FATIMA : + + Interpretation Summary Left ventricular systolic function remains moderately reduced with an estimated ejection fraction of 35 to 40% with a significant dyssynchronous contraction pattern and apical hypokinesis, likely due to pacemaker activation. There is moderate global hypokinesis with more severe hypokinesis to akinesis in the proximal inferior and inferoposterior segments. There has been no significant change since the previous study. Left ventricle is moderately enlarged with mild to moderate asymmetric hypertrophy of the septum but grossly appears unchanged. While diastolic function is challenging to assess, there is a probable pseudonormalized pattern of diastolic filling suggesting elevated filling pressures but likely unchanged compared to the previous study, although an A wave is more clearly evident on today's study. The right ventricle is not well seen but grossly appears normal. Right ventricular systolic pressure is estimated at 38 mmHg with a CVP of 8 mmHg and is likely similar to the previous exam. There is severe left atrial enlargement and moderate right atrial enlargement and both grossly appear unchanged from the previous study, possibly slightly smaller. There is mild to moderate mitral and tricuspid regurgitation that are likely unchanged from the previous exam. The patient was in a paced rhythm at 60 bpm throughout the study. Procedure: A two-dimensional transthoracic echocardiogram with color flow and Doppler was performed. The study quality was technically adequate. Comparison is made with the echocardiogram of 04/27/2020. The patient has a paced rhythm. The heart rate ranged between 60-63 bpm during the study. Left Ventricle: There is moderate asymmetric left ventricular hypertrophy. The estimated left ventricular end diastolic volume is 181 ml. The left ventricle is moderately dilated. This is grossly unchanged compared to the previous study. Left ventricular systolic function is moderately reduced. The ejection fraction is estimated to be 35-40%. There is a moderate dyssynchronous contraction pattern due to the paced rhythm. Apical wall motion abnormality may reflect pacemaker activation. There is moderate global hypokinesis of the left ventricle. There is more severe hypokinesis to akinesis of the proximal inferior and inferoposterior segments which is unchanged from the previous study. Diastolic parameters suggest a pseudonormalization pattern, consistent with probable elevated filling pressures. This is unchanged compared to the previous study. Right Ventricle: The right ventricle is not well visualized. There is a pacemaker lead in the right ventricle. The right ventricle grossly appears normal in size with probable normal systolic function. This is likely unchanged compared to the previous study. Atria: The left atrium is severely dilated. There is a catheter/pacemaker lead seen in the right atrium. The right atrium is moderately dilated. This is grossly unchanged compared to the previous study. There is no Doppler evidence for an interatrial shunt. Mitral Valve: There is mild mitral annular calcification. The mitral valve leaflets appear mildly thickened, but open well. There is mild to moderate mitral regurgitation. Aortic Valve: The aortic valve is trileaflet. The aortic valve is mildly calcified. There is minimally reduced leaflet mobility. There is no aortic valve stenosis. No aortic regurgitation is present. Tricuspid Valve: The tricuspid valve is normal in structure and function. There is mild to moderate tricuspid regurgitation. The right ventricular systolic pressure is estimated to be at least 38 mmHg based on an estimated right atrial pressure of 8 mm Hg. This is unchanged compared to the previous study. Pulmonic Valve: The pulmonic valve is not well visualized. There is trace pulmonic regurgitation. Great Vessels: The aortic root is normal size. The ascending aorta could not be visualized. The IVC is dilated (diameter is greater than 2.1 cm) yet it collapses greater than 50% with a sniff. This suggests a right atrial pressure of 8 mm Hg. Pericardium/ Pleura There is no pericardial effusion. There is no pleural effusion. MMode/2D Measurements & Calculations LVIDd: 6.0 cm LVOT diam: 2.6 cm LVIDs: 5.1 cm Ao root diam: 3.8 cm FS: 14.6 % Ao Arch Diam (Prox Trans): 3.3 cm IVSd: 1.7 cm LVPWd: 1.0 cm LV chaidez. diameter/BSA (cm/m^2): 2.4 LV sys. diameter/BSA (cm/m^2): 2.0 LA A2 area: 35.5 cm2 RA long axis: 7.1 cm LA A4 area: 32.1 cm2 RA area: 30.0 cm2 LA length (vol): 6.5 cm RA vol: 108.8 ml LA vol: 147.4 ml RA : 42.6 ml/m2 LA vol index: 57.7 ml/m2 IVC diam: 2.6 cm TAPSE: 1.8 cm Doppler Measurements & Calculations Ao V2 max: 130.9 cm/sec LVOT Max Campos: 85.2 cm/sec Ao V2 mean: 101.9 cm/sec LV V1 max P.9 mmHg Ao max P.9 mmHg LV V1 VTI: 18.9 cm Ao mean P.4 mmHg MIGUEL(I,D): 4.0 cm2 Ao V2 VTI: 25.6 cm MIGUEL(V,D): 3.6 cm2 sev ratio: 0.74 MIGUEL indexed to BSA (cm^2/m^2): 1.6 MV E max campos: 63.5 cm/sec TR max campos: 274.7 cm/sec MV A max campos: 59.5 cm/sec TR max P.2 mmHg MV E/A: 1.1 PA V2 max: 98.9 cm/sec Med Peak E' Campos: 4.2 cm/sec PA V2 mean: 68.3 cm/sec E/E' med: 15.2 PA mean P.2 mmHg Lat Peak E' Campos: 9.3 cm/sec PA pr(Accel): 20.8 mmHg E/E' lat: 6.9 E/e' average: 11.0 MV dec time: 0.40 sec SV(LVOT): 103.3 ml Reading Physician:07:48 AM
[2022-12-16 08:42] LABS: Add Manual Diff / Slide Review NO; Basophils Absolute Auto 100 /uL (0-100); Basophils Percent Auto 0.9 % (0-2); Eosinophils Absolute Auto 100 /uL (0-450); Eosinophils Percent Auto 1.6 % (2-4); Hemoglobin 12.3 g/dL (13.5-17.5); Lymphocytes Absolute Auto 600 /uL (1100-4500); Mean Corpuscular HGB Conc 34.2 % (30-36); Mean Corpuscular Hemoglobin 30.3 PG (26-34); Mean Corpuscular Volume 88.5 fL (80-100); Monocytes Absolute Auto 800 /uL (0-900); Monocytes Percent Auto 13.8 % (3-14); Neutrophils Absolute Auto 4100 /uL (1500-7000); Neutrophils Percent Auto 72.7 % (50-75); Platelet Count 74 X10^3/uL (150-400); Red Blood Cell Count 4.07 X10^6/uL (4.5-5.9); Red Cell Distribution Width 14.6 % (11.6-14.8); White Blood Cell Count 5.7 X10^3/uL (4.5-11.0)
[2022-12-16 08:58] LABS: Alanine Aminotransferase 28 IU/L (<50); Albumin 3.8 g/dL (3.5-5.0); Albumin Globulin Ratio 1.7 (1.0-2.8); Alkaline Phosphatase 67 U/L (38-126); Aspartate Aminotransferase 34 IU/L (17-59); BUN Creatinine Ratio 17.1 (6-22); Bilirubin Total 0.9 mg/dL (0.2-1.3); Blood Urea Nitrogen 12 mg/dL (9-20); Calcium 8.9 mg/dL (8.4-10.2); Carbon Dioxide 30 mmol/L (22-32); Chloride 106 mmol/L (98-107); Estimated Glomerular Filt Rate > 60 mL/min (>60); Globulin 2.2 g/dL (1.7-4.1); Glucose 132 mg/dL (80-110); HEMOLYSIS < 15 (0-50); Lactate Dehydrogenase 348 U/L (120-246); Potassium 3.4 mmol/L (3.4-5.1); Sodium 142 mmol/L (137-145)
== END ==
PROVIDERS: Internal Medicine Hematology & Oncology; PCP Internal Medicine; Referring Provider Specialist; Visit Provider Specialist
DX: I08.1 Rheumatic disorders of both mitral and tricuspid valves (principal); R06.00 Dyspnea, unspecified; I95.89 Other hypotension; Z95.0 Presence of cardiac pacemaker; C83.10 Mantle cell lymphoma, unspecified site
CPT/HCPCS: 80053; 83615; 85025; 93306

== ENCOUNTER → 2023-10-10 13:50 | Outpatient (CLI) | payer MEDICARE, SELFPAY ==
--- NOTE | 2023-10-10 13:55 | DI.ECHO.S_ITS ---
[place] +---------+ Hospital +---------+ : : [address] [place] : : : : [id number] : : : : Phone: [phone] : [phone] +---------+ Echocardiogram Report + + :Name: SUZANNE PATRICIO Study Date: 10/10/2023 Height: 76 in : :[facility] ReadingLocation: Weight: 220 lb : : Gender: Male BSA: 2.3 m2 : :: 1940 Age: 83 yrs BP: 125/74 mmHg: :Reason For Study: ISCHEMIC CARDIOMYOPATHY : :Ordering Physician: AKUA, : :LEONELA Performed By: Raf Green : :Referring: LEONELA FATIMA : + + Interpretation Summary Left ventricular systolic function is mild to moderately reduced with an estimated ejection fraction of 45 to 50% with akinesis of the proximal and mid inferior and inferoposterior segments, consistent with previous infarction, and moderate hypokinesis in the distal inferior septum, inferior wall, and apex with a very dyssynchronous contraction pattern, likely due to pacemaker activation. This appears unchanged from the previous study although global contractility appears to be slightly more dynamic. The left ventricle is borderline enlarged but measures smaller compared to previous. There is mild to moderate LVH and diastolic function remains challenging to assess because of underlying atrial fibrillation but filling pressures are likely similar to that of the previous study. The right ventricle grossly appears normal in size and systolic function and is likely unchanged. Right ventricular systolic pressure is likely 25 mmHg plus the clinically estimated CVP, and may be slightly lower compared to the previous exam. There is moderate biatrial enlargement that is grossly unchanged. Left atrial size may be slightly smaller. There is mild mitral and mild to moderate tricuspid regurgitation and both appear grossly unchanged from the previous study. The aortic root is borderline enlarged but unchanged. The patient was likely in atrial fibrillation at 63 to 80 bpm during the exam. Procedure: A two-dimensional transthoracic echocardiogram with color flow and Doppler was performed. The study quality was technically adequate. Comparison is made with the echocardiogram of 07/08/2022. The patient was in atrial fibrillation with heart rates between 63-80 bpm during the exam. Left Ventricle: The left ventricle is borderline dilated. The estimated left ventricular end diastolic volume is 159 mL compared to the previous 181 ml. This is slightly smaller compared to the previous study. There is mild- moderate concentric left ventricular hypertrophy. There is moderate proximal septal thickening noted. Left ventricular systolic function is mild to moderately reduced. The ejection fraction is estimated to be 45-50%. There is thinning and akinesis of the proximal to mid inferior and inferoposterior segments that is unchanged, as well as moderate hypokinesis in the distal inferior wall and inferior septum with a marked dyssynchronous contraction pattern, likely due to a paced rhythm but overall contractility appears slightly more dynamic. Diastolic function could not be accurately assessed due to atrial fibrillation. This is unchanged compared to the previous study. Right Ventricle: There is a pacemaker lead in the right ventricle. The right ventricle grossly appears normal in size with probable normal systolic function. This is unchanged compared to the previous study. Atria: Both atria are moderately dilated. This is unchanged compared to the previous study. There is a catheter/pacemaker lead seen in the right atrium. Mitral Valve: The mitral valve is normal in structure and function. There is no mitral valve stenosis. There is mild mitral regurgitation. This is unchanged compared to the previous study. Aortic Valve: The aortic valve is trileaflet. The aortic valve is slightly calcified. The aortic valve opens well. There is no aortic valve stenosis. No aortic regurgitation is present. Tricuspid Valve: The tricuspid valve is normal in structure and function. There is no tricuspid stenosis. There is mild to moderate tricuspid regurgitation. This is unchanged compared to the previous study. Right ventricular systolic pressure is estimated to be 25 mmHg plus the clinically estimated CVP which cannot be estimated on this exam. This is possibly slightly lower compared to the previous study. Pulmonic Valve: The pulmonic valve is not well visualized. There is no pulmonic valvular stenosis. There is no pulmonic valvular regurgitation. Great Vessels: The aortic root is borderline dilated. This is unchanged compared to the previous study. The ascending aorta could not be visualized. The inferior vena cava was not visualized. Pericardium/ Pleura There is no pericardial effusion. There is no pleural effusion. MMode/2D Measurements & Calculations LVIDd: 5.4 cm LVOT diam: 2.5 cm LVIDs: 4.3 cm Ao root diam: 3.8 cm FS: 20.1 % IVSd: 1.6 cm LVPWd: 1.2 cm LV chaidez. diameter/BSA (cm/m^2): 2.3 LV sys. diameter/BSA (cm/m^2): 1.9 LA A2 area: 29.6 cm2 RA long axis: 7.2 cm LA A4 area: 31.3 cm2 RA area: 28.6 cm2 LA length (vol): 6.8 cm RA vol: 96.5 ml LA vol: 116.2 ml RA : 41.8 ml/m2 LA vol index: 50.4 ml/m2 RVD1 (basal): 3.8 cm RVD2 (mid): 2.8 cm TAPSE: 1.7 cm Doppler Measurements & Calculations Ao V2 max: 150.3 cm/sec LVOT Max Campos: 72.6 cm/sec Ao V2 mean: 81.3 cm/sec LV V1 max P.1 mmHg Ao max P.0 mmHg LV V1 VTI: 12.8 cm Ao mean P.2 mmHg MIGUEL(I,D): 3.0 cm2 Ao V2 VTI: 21.7 cm MIGUEL(V,D): 2.4 cm2 sev ratio: 0.59 MIGUEL indexed to BSA (cm^2/m^2): 1.3 MV E max campos: 82.8 cm/sec TR max campos: 248.6 cm/sec MV A max campos: 34.1 cm/sec TR max P.7 mmHg MV E/A: 2.4 PA V2 max: 87.4 cm/sec Med Peak E' Campos: 4.5 cm/sec PA V2 mean: 56.0 cm/sec E/E' med: 18.5 PA mean P.4 mmHg Lat Peak E' Campos: 11.9 cm/sec PA pr(Accel): 48.2 mmHg E/E' lat: 6.9 E/e' average: 12.7 MV dec time: 0.24 sec SV(LVOT): 64.1 ml Reading Physician:05:37 PM
== END ==
PROVIDERS: PCP Internal Medicine; Referring Provider Specialist; Visit Provider Specialist
DX: I08.1 Rheumatic disorders of both mitral and tricuspid valves (principal); I25.5 Ischemic cardiomyopathy
CPT/HCPCS: 93306

== ENCOUNTER → 2025-04-19 12:43 | Outpatient (CLI) | payer MEDICARE, SELFPAY ==
--- NOTE | 2025-04-19 12:49 | DI.ECHO.S_ITS ---
[facility]+ [facility] : : [address] : : [place] : : [id number] : : Phone: [phone] Echocardiogram Report + + :Name: SUZANNE PATRICIO Study Date: 04/19/2025 Height: 78 in : [facility] Weight: 255 lb : : Gender: Male BSA: 2.5 m2 : :: 1940 Age: 84 yrs BP: 156/90 mmHg: :Reason For Study: Ischemic cardiomyopathy : :Ordering Physician: AKUA, : :LEONELA Performed By: Esteban Che : :Referring: LEONELA FATIMA : + + Interpretation Summary Left ventricular systolic function is moderate to severely reduced with an estimated ejection fraction of 30 to 35% with moderate global hypokinesis and significant dyssynchrony, both more prominent compared to the previous exam, and more severe hypokinesis in the proximal and mid inferior, inferolateral, and septal segments that appears unchanged. Left ventricular volumes are mildly increased and slightly larger. Diastolic function and filling pressures remain challenging to assess, but likely similar to the previous exam with perhaps slightly higher filling pressures. The right ventricle is borderline enlarged with systolic function at the lower limits of normal and unchanged from the previous exam. Right ventricular systolic pressure is estimated at 24 mmHg plus the clinically estimated CVP, and is likely unchanged. There is moderate left atrial enlargement and borderline right atrial enlargement, the latter significantly smaller compared to the previous exam. There is mild mitral regurgitation and mild to moderate tricuspid regurgitation that are unchanged from the previous study. The patient was in a paced rhythm at 63-73 bpm. Procedure: A two-dimensional transthoracic echocardiogram with color flow and Doppler was performed. The study quality was technically difficult. A contrast injection of Definity was performed to improve assessment of LV function. The subcostal views were difficult to obtain and are suboptimal in quality. Comparison is made with the echocardiogram of 10/10/2023. The patient has a paced rhythm. The heart rate ranged between 63-73 bpm during the study. Left Ventricle: The left ventricle is mildly dilated. Left ventricular wall thickness is mild-moderately increased. The estimated left ventricular end diastolic volume is 175 mL compared to the previous 159 ml. There is no thrombus. Left ventricular systolic function is moderate to severely reduced. The ejection fraction is estimated to be 30-35%. There is moderate global hypokinesis with a significant dyssynchronous contraction pattern with more severe hypokinesis in the proximal and mid inferior, inferolateral, and septal segments, similar to the previous exam, although global hypokinesis and dyssynchrony are more prominent with a resultant reduction in the ejection fraction. Diastolic function could not be accurately assessed due to atrial fibrillation. Indeterminate diastolic function. Right Ventricle: There is a pacemaker lead in the right ventricle. The right ventricle is borderline dilated. Right ventricular systolic function is at the lower limits of normal. This is unchanged compared to the previous study. Atria: The left atrium is moderately dilated. The right atrium is borderline dilated. The right atrium has significantly decreased in size since the prior echo exam. There is no Doppler evidence for an interatrial shunt. Mitral Valve: There is mild mitral annular calcification. The mitral valve leaflets appear to open well. There is no mitral valve stenosis. There is mild mitral regurgitation. This is unchanged compared to the previous study. Aortic Valve: The aortic valve is trileaflet. The aortic valve is slightly calcified. There is minimally reduced leaflet mobility. There is no aortic valve stenosis. No aortic regurgitation is present. Tricuspid Valve: The tricuspid valve is not well visualized, but is grossly normal. There is mild to moderate tricuspid regurgitation. This is unchanged compared to the previous study. Right ventricular systolic pressure is estimated to be 24 mmHg plus the clinically estimated CVP which cannot be estimated on this exam. This is likely unchanged compared to the previous study. Pulmonic Valve: The pulmonic valve is not well seen, but is grossly normal. There is trace pulmonic regurgitation. Great Vessels: The aortic root is normal size. The ascending aorta could not be visualized. The aortic arch could not be visualized. The inferior vena cava was not visualized. Pericardium/ Pleura There is no pericardial effusion. MMode/2D Measurements & Calculations LVIDd: 5.8 cm LVOT diam: 2.7 cm LVIDs: 5.2 cm Ao root diam: 3.9 cm FS: 10.4 % EPSS: 0.97 cm IVSd: 1.4 cm LVPWd: 1.5 cm LV chaidez. diameter/BSA (cm/m^2): 2.3 LV sys. diameter/BSA (cm/m^2): 2.1 LA A2 area: 33.5 cm2 RA long axis: 6.8 cm LA A4 area: 34.2 cm2 RA area: 23.7 cm2 LA length (vol): 7.8 cm RA vol: 70.6 ml LA vol: 124.3 ml RA : 28.2 ml/m2 LA vol index: 49.6 ml/m2 RVD1 (basal): 4.4 cm RVD2 (mid): 3.9 cm TAPSE: 1.7 cm Doppler Measurements & Calculations Ao V2 max: 138.6 cm/sec LVOT Max Campos: 77.8 cm/sec Ao V2 mean: 103.5 cm/sec LV V1 max P.4 mmHg Ao max P.7 mmHg LV V1 VTI: 13.4 cm Ao mean P.7 mmHg MIGUEL(I,D): 3.4 cm2 Ao V2 VTI: 21.6 cm MIGUEL(V,D): 3.1 cm2 sev ratio: 0.62 MIGUEL indexed to BSA (cm^2/m^2): 1.4 MV E max campos: 94.8 cm/sec TR max campos: 246.9 cm/sec MV A max campos: 47.5 cm/sec TR max P.4 mmHg MV E/A: 2.0 PA V2 max: 89.1 cm/sec Med Peak E' Campos: 4.0 cm/sec PA V2 mean: 58.8 cm/sec E/E' med: 23.8 PA mean P.6 mmHg Lat Peak E' Campos: 11.5 cm/sec PA pr(Accel): 37.9 mmHg E/E' lat: 8.3 E/e' average: 16.0 MV dec time: 0.14 sec SV(LVOT): 74.0 ml Reading Physician:09:31 AM
== END ==
LOC: ECHO 12:46
PROVIDERS: PCP Family Medicine; Referring Provider Specialist; Visit Provider Specialist
DX: I08.1 Rheumatic disorders of both mitral and tricuspid valves (principal); I25.5 Ischemic cardiomyopathy
CPT/HCPCS: 93306; Q9957